=== PATIENT | male | born 1995 ===

== ENCOUNTER 2020-05-08 15:22 | Emergency (ER) | payer SELFPAY ==
--- NOTE | 2020-05-08 15:32 | Event Note ---
ED Screening Note ED Screening Note: LAC LLE NEEDS TDAP AND CLOSURE This initial assessment/diagnostic orders/clinical plan/treatment(s) is/are subject to change based on patients health status, clinical progression and re- assessment by fellow clinical providers in the ED. Further treatment and workup at subsequent clinical providers discretion. Patient/guardian urged not to elope from the ED as their condition may be serious if not clinically assessed and managed. Initial orders include: FT
[2020-05-08 15:34] VITALS: BP 118/79
[2020-05-08] MEDS ORDERED: NEOMY 3.5 MG/BACIT 400 UNITS/POLY B 5000 UNITS/GM OINT PACKET TP ONE (15:37)
[2020-05-08] MEDS ORDERED: LIDOCAINE (1%) 10 MG/1 ML VIAL 20 ML MDV INFILTRATI ONE (15:37)
[2020-05-08] MEDS ORDERED: DIPHtheria,PERTUSSIS(ACELL),TETANUS VACCINE/PF 0.5 ML VIAL IM ONE (15:37)
[2020-05-08] MEDS ORDERED: SODIUM CHLORIDE 0.9% IRR 500 ML BOTTLE IR ONE (15:37)
[2020-05-08] MEDS ORDERED: ACETAMINOPHEN 500 MG TAB PO ONE (17:19)
[2020-05-08] MEDS ORDERED: IBUPROFEN 600 MG TAB PO ONE (17:19)
--- NOTE | 2020-05-08 17:23 | Emergency Department Report ---
ED General Adult HPI - General Chief complaint: Laceration/Recheck/Suture Stated complaint: LT LEG Time Seen by Provider: 05/08/20 15:31 Source: patient Mode of arrival: Ambulatory Limitations: No Limitations - History of Present Illness Initial comments: 24-year-old immunocompetent male patient presents to the emergency department complaints of an accidental laceration to his left leg occurring just prior to arrival. Patient states that he accidentally slipped and fell while he was attempting to take a shower. There was no resulting head injury or loss of consciousness. Patient has been ambulatory without assistance since the fall. Tetanus immunization is not up-to-date. Denies numbness, weakness, swelling, foreign body sensation. Denies other complaints at this time. - Related Data Allergies Allergy/AdvReac Type Severity Reaction Status Date / Time No Known Allergies Allergy Unverified 05/08/20 15:31 ED Review of Systems ROS: Stated complaint: LT LEG Other details as noted in HPI GENERAL: Negative for fever, chills, weight change, anorexia, fatigue. ENT: Negative for ear pain, difficulty hearing, sore throat, nasal congestion, epistaxis. CARDIOVASCULAR: Negative for chest pain, palpitations, lower extremity swelling. PULMONARY: Negative for cough, dyspnea, wheezing, orthopnea, cyanosis. GASTROINTESTINAL: Negative for abdominal pain, nausea, vomiting, diarrhea, constipation. MUSCULOSKELETAL: Negative for joint pain, joint swelling, myalgias, back pain, neck pain. NEUROLOGICAL: Negative for headache, seizure, syncope, paresthesias, weakness. INTEGUMENTARY: Positive for laceration. HEMATOLOGICAL: Negative for hemoptysis, hematemesis, hematochezia, hematuria. PSYCHIATRIC: Negative for hallucinations, suicidal ideation, homicidal ideation, anxiety, depression. ED Past Medical Hx - Past Medical History Previous Medical History?: Yes - Surgical History Past Surgical History?: No - Social History Smoking Status: Never Smoker Substance Use Type: Marijuana ED Physical Exam - General Limitations: No Limitations - Other Other exam information: General: Awake, appropriately interactive, no acute distress. Neck: Supple. Full range of motion intact. Cardiovascular: Normal peripheral perfusion. Pulmonary: No respiratory distress. Patient is speaking normally without use of accessory muscles. Skin: 4 cm vertical linear laceration noted to the mid-anterior left lower leg involving skin and subcutaneous tissue. No foreign body palpated or visualized. Wound does not appear grossly contaminated. Good hemostasis. Distal neurovascular and motor/sensory function is intact. Neurological: No facial asymmetry. Speech is clear. Follows commands. Patient is alert and oriented. Musculoskeletal: Moves all four extremities spontaneously with normal range of motion. Psych: Cooperative. Appropriate mood and affect. ED Course Vital Signs 05/08/20 05/08/20 15:31 17:50 Temperature 98.9 F Pulse Rate 57 L Respiratory 18 18 Rate Blood Pressure 118/79 O2 Sat by Pulse 99 Oximetry - Procedure Description Procedures done: Informed consent was obtained after discussing the risks and benefits associated with this procedure. Laceration approximately 4 centimeters in length, involving skin and subcutaneous tissue, and does not involve any deep structures. The overlying skin was cleaned with saline. The wound edges were then infused with 4 mL Lidocaine 1% for local analgesia. The wound was copiously irrigated w/ normal saline, and explored to its base. No retained foreign bodies were identified. The wound was closed using 3-0 Prolene sutures in a simple interrupted pattern. A total of 4 were used. Repeat distal neurovascular and motor/sensory exam intact. The patient tolerated the procedure well and there were no immediately apparent complications. ED Medical Decision Making - Radiology Data [facility] [address] [place] [address] XRay Report Signed Patient: TG NAVA MR#: [id number] : 1995 Acct:[id number] Age/Sex: 24 / M ADM Date: 05/08/20 Loc: ED Attending Dr: Ordering Physician: SIMON ANDERSON Date of Service: 05/08/20 Procedure(s): XR tibia fibula 2V LT Accession Number(s): [id number] cc: SIMON ANDERSON Fluoro Time In Minutes: Left tibia and fibula 4 views INDICATION: Laceration FINDINGS: No acute fractures identified. Bandage overlying the mid lower leg laceration. No foreign body is definitely seen. No acute fracture. Signer Name: Gucci Funk MD Signed: 05/08/2020 5:42 PM Workstation Name: [id number] Transcribed By: ALESSIA Dictated By: SCARLET FUNK MD Electronically Authenticated By: SCARLET FUNK MD Signed Date/Time: 05/08/201741 DD/ 1741 TD/TT: - Medical Decision Making Differential diagnosis including but not limited to: laceration, skin avulsion, tendon injury, retained foreign body, abrasion Patient presents to emergency department with complaints of a laceration to his left lower leg. Distal neurovascular motor/sensory function exam intact. X-ray without evidence of retained foreign body. Laceration was repaired without complications. See procedure note for details. Patient discharged home with antibiotic ointment and referral to outpatient primary care provider for suture removal in 10 to 14 days. Patient expressed understanding and is agreeable to plan of care. Wound care precautions discussed. Strict return precautions provided. Repeat exam is unremarkable and benign. History, exam, diagnostic testing, and current condition do not suggest worrisome pathology to warrant further testing, continued ED treatment, admission, or surgical evaluation at this point. Given the low probability of a significant medical illness, it would be more likely to result in harm than benefit to perform further testing at this stage. Discussed findings, presumptive diagnosis, need for follow-up and specific signs/symptoms that should prompt immediate return to the emergency department. Instructions were explained in detail to the patient in addition to giving written discharge information. Patient expressed understanding and was given the opportunity to ask questions, all of which were satisfactorily answered prior to discharge home. Critical care attestation.: If time is entered above; I have spent that time in minutes in the direct care of this critically ill patient, excluding procedure time. ED Disposition Clinical Impression: Laceration of left lower leg without complication Qualifiers: Encounter type: initial encounter Qualified Code(s): S81.812A - Laceration without foreign body, left lower leg, initial encounter Disposition: TO HOME OR SELFCARE Is pt being admited?: No Does the pt Need Aspirin: No Condition: Stable Instructions: Laceration Care, Adult Additional Instructions: Take Tylenol every 4 hours and Motrin every 8 hours as needed for pain. Apply antibiotic ointment to wound 3 times daily. Keep wound clean and covered. Change dressing daily. Once sutures are removed, apply sunscreen to affected area daily to reduce scarring. Follow-up with primary care provider in 10 to 14 days for suture removal. Call Monday to schedule an appointment. Return to the emergency department immediately for new or worsening symptoms. Referrals: PATRICK BOUDREAUX MD [Staff Physician] - 3-5 Days Time of Disposition: 18:14
--- NOTE | 2020-05-08 17:46 | XRay Report ---
Left tibia and fibula 4 views INDICATION: Laceration FINDINGS: No acute fractures identified. Bandage overlying the mid lower leg laceration. No foreign b jose armando is definitely seen. No acute fracture. Signer Name: Gucci Funk MD Signed: 05/08/2020 5:42 PM Workstation Name: [id number]
== END 2020-05-08 18:58 | disposition home or self-care (01) ==
LOC: ED 15:22
DX: S81.812A Laceration without foreign body, left lower leg, initial encounter (principal); F12.10 Cannabis abuse, uncomplicated; W18.30XA Fall on same level, unspecified, initial encounter; Y93.89 Activity, other specified; Y92.89 Other specified places as the place of occurrence of the external cause; Y99.8 Other external cause status
CPT/HCPCS: 12002; 73590; 90471; 90715; 99283; A6250